=== PATIENT | male | born 1985 | race Caucasian/White ===

== ENCOUNTER 2017-08-28 18:26 | Emergency (ER) | payer SELFPAY ==
[~2017-08-28] VITALS: Ht 167.6 cm; Wt 65.9 kg
[2017-08-28 18:30] VITALS: BP 116/67; TEMP 98.1
[2017-08-28 23:39] VITALS: PULSE 88
== END 2017-08-28 23:39 | disposition home or self-care (01) ==
LOC: COL.ER 18:26
DX: J11.1 Influenza due to unidentified influenza virus with other respiratory manifestations (principal)